=== PATIENT | female | born 2000 | race Caucasian/White ===

== ENCOUNTER 2022-02-09 19:14 | Emergency (ER) | payer OTHER ==
[~2022-02-09] VITALS: Ht 157.5 cm; Wt 68.0 kg
[~2022-02-09 19:14] MED LIST: CEPH250A PO; SILSUL1TC TOP
== END 2022-02-09 19:33 | disposition home or self-care (01) ==
LOC: ER 19:14
DX: R04.0 Epistaxis (principal); Z91.048 Other nonmedicinal substance allergy status
CPT/HCPCS: 99283

== ENCOUNTER → 2023-07-23 | Outpatient (CLI) | payer OTHER | LOC: LAB SHORT 18:30 → LAB 18:30 | DX: L03.316 Cellulitis of umbilicus (principal) | CPT/HCPCS: 87070; 87205 ==

== ENCOUNTER 2024-10-06 09:03 | Day surgery (SDC) | payer OTHER ==
[2024-10-06] VITALS (11 sets, daily range): BP systolic 112–129; BP diastolic 70–93
[~2024-10-06] VITALS: Ht 154.9 cm; Wt 89.4 kg
[~2024-10-06 09:03] MED LIST changes: +ALBU90OI; +AMLO5 PO; +BUPR150ER PO; +CefOXitin Sodium 2,000 MG in NS 50 ML IV SCH; +Co Q-1010 MG; +DULO60 PO; +ESTROVEN; +FAMO20 PO; +FERSU300 PO; +GABA100 PO; +GABA300 PO; +GLUCOSAMINE CHONDROI; +IBUP800 PO; +Indocyanine Green 25 MG Vial IV SCH; +KRILL OIL500 MG PO; +LORA10ER PO; +Lactated Ringer's 1,000 ML IV SCH; +Lisinopril-Hct1 EAC4 PO; +MERIBIN5 MG PO; +NITR.4SL SL; +OXYC5 PO; +TUMERIC; +[UNRECOGNIZED DRUG - CODE] PO; +[UNRECOGNIZED DRUG - OTHER]
[2024-10-06] MEDS ORDERED: Bupivacaine 0.5% HCl 5 MG/ML 30MLVIAL ONE (09:44)
[2024-10-06] MEDS ORDERED: propofoL 20 ML IV ONE (09:45)
[2024-10-06] MEDS ORDERED: Midazolam HCl 1MG / ML 2ML Vial ONE (09:45)
[2024-10-06] MEDS ORDERED: FentaNYL Citrate 50 MCG/ML 2 ML Injection ONE (09:45)
--- NOTE | 2024-10-06 09:45 | NUR ---
History, Chart, Medications and Allergies reviewed before start of procedure. Pre-Op teaching done. Pt verbalizes understanding. Patient confirms NPO status and agrees with scheduled surgery. PT BELONGINGS PLACED UNDER GURNEY. PT GAVE PURSE TO MOM AT BS.
[2024-10-06] MEDS ORDERED: Rocuronium Bromide 10 MG/ML 5ML Injection IV ONE (09:47)
[2024-10-06] MEDS ORDERED: Ketorolac Tromethamine 30mg Vial ONE (10:11)
[2024-10-06] MEDS ORDERED: Sugammadex Sodium 200 MG/2ML SDV (100 MG/ML) ONE (10:49)
[2024-10-06] MEDS ORDERED: Ondansetron HCl 2 MG / ML 2ML Vial ONE (10:49)
[2024-10-06] MEDS ORDERED: Dexamethasone Sod Phos 10 MG/ML 1ML VIAL ONE (10:49)
[2024-10-06] MEDS ORDERED: OxyCODONE 5 mg/Acetamin 325 mg TABLET PO PRN (11:05)
[2024-10-06] MEDS ORDERED: HYDROmorphone HCl/Pf 1MG SYR ONE (11:21)
--- NOTE | 2024-10-06 11:42 | NUR ---
PT TO DAY SURGERY FROM PACU WITH ROBOTIC LAPAROSCOPIC CHOLECYSTECTOMY; BEDSIDE REPORT RECEIVED. PT IS AWAKE, ALERT AND ORIENTED; ABLE TO MOVE SELF IN BED. VSS. PT HAS 4 ABD INCISIONS THAT ARE CLOSED WITH DERMABOND AND ARE C/D/I. PT MOM AT BEDSIDE. PT HAS NO COMPLAINTS. REQUESTING PO FLUIDS.
--- NOTE | 2024-10-06 11:56 | NUR ---
PT TOLERATING PO FLUIDS WELL. INCISIONS REMAIN C/D/I
--- NOTE | 2024-10-06 12:06 | NUR ---
PT TOLERATING CRACKERS
--- NOTE | 2024-10-06 12:16 | NUR ---
Discharge instructions reviewed with patient. Patient verbalizes understanding. Copy given to patient to take home. Patient States Post-Procedure ride home has been arranged. Pt declines hospital ice pack.
--- NOTE | 2024-10-06 12:26 | NUR ---
Patient up to Ambulate independently. Gait steady. Discharged via wheelchair to private car for ride home.
== END 2024-10-06 12:27 | disposition home or self-care (01) ==
LOC: ORSCMMR 09:03 → ORD 10:30 → ORSCMMR 12:27
PROVIDERS: Surgery
PROC: 0FT44ZZ Resection of Gallbladder, Percutaneous Endoscopic Approach (ICD-10-PCS; principal; 2024-10-06 10:30)
DX: K80.20 Calculus of gallbladder without cholecystitis without obstruction (principal); F41.9 Anxiety disorder, unspecified; K76.0 Fatty (change of) liver, not elsewhere classified; E66.9 Obesity, unspecified; Z68.37 Body mass index [BMI] 37.0-37.9, adult
CPT/HCPCS: 88304; A9270; J0694; J1100; J1171; J1885; J2250; J2405; J2704; J3010; J7120

== ENCOUNTER 2025-08-17 16:14 | Emergency (ER) | payer OTHER ==
[~2025-08-17] VITALS: Ht 162.6 cm; Wt 97.5 kg
[~2025-08-17 16:14] MED LIST changes: -PROM25 PO
[2025-08-17 16:31] VITALS: BP 145/97
[2025-08-17] MEDS ORDERED: Ondansetron 4 MG SoluTab SL ONE (16:40)
[2025-08-17] MEDS ORDERED: HYDROmorphone HCl/Pf 1MG SYR IV ONE (19:10)
[2025-08-17] MEDS ORDERED: Ondansetron HCl 2 MG / ML 2ML Vial IV ONE (19:10)
[2025-08-17] MEDS ORDERED: OxyCODONE 5 mg/Acetamin 325 mg TABLET PO ONE (19:25)
[2025-08-17] MEDS ORDERED: RX Prepack 6 Tabs Oxycodone 5mg UD ONE (19:25)
[2025-08-17] MEDS ORDERED: PROM25 PO (19:27)
== END 2025-08-17 19:42 | disposition home or self-care (01) ==
LOC: ER 16:14
DX: K52.9 Noninfective gastroenteritis and colitis, unspecified (principal)
CPT/HCPCS: 99284-25; A9270; J7120

== ENCOUNTER → 2025-08-17 | Outpatient (CLI) | payer OTHER ==
[~2025-08-17] MED LIST changes: -CefOXitin Sodium 2,000 MG in NS 50 ML IV SCH; -Indocyanine Green 25 MG Vial IV SCH; -Lactated Ringer's 1,000 ML IV SCH; +PROM25 PO
[2025-08-17 09:13] LABS: BASOPHILS ABSOLUTE AUTO 0.03 K/mm3 (0.00-0.23); BASOPHILS PERCENT AUTO 0 % (0-2); EOSINOPHILS ABSOLUTE AUTO 0.02 K/mm3 (0.00-0.68); EOSINOPHILS PERCENT AUTO 0 % (0-6); Hematocrit 45.6 % (33.0-51.0); Hemoglobin 15.2 g/dL (11.5-16.0); IMMATURE GRAN ABSOLUTE AUTO 0.02 K/mm3 (0.00-0.10); IMMATURE GRAN PERCENT AUTO 0 % (0-1); LYMPHOCYTES ABSOLUTE AUTO 1.47 K/mm3 (0.84-5.20); LYMPHOCYTES PERCENT AUTO 19 % (21-46); MONOCYTES ABSOLUTE AUTO 0.45 K/mm3 (0.16-1.47); MONOCYTES PERCENT AUTO 6 % (4-13); Mean Corpuscular HGB Conc 33.3 g/dL (31.5-36.5); Mean Corpuscular Volume 87 fL (80-100); NEUTROPHILS ABSOLUTE AUTO 5.74 K/mm3 (1.96-9.15); NEUTROPHILS PERCENT AUTO 74 % (41-73); NRBC ABSOLUTE 0.00 K/mm3 (0.00-0.02); NRBC Auto 0.0 /100 WBC (0.0-0.2); Platelet Count 301 K/mm3 (150-400); RDW Coefficient Variation 11.9 % (11.7-14.2); RDW Standard Deviation 38.2 fL (35.1-46.3)
[2025-08-17 09:47] LABS: Alanine Aminotransfer (ALT/SGP 30.0 U/L (12-78); Albumin, Blood 4.2 g/dL (3.4-5.0); Albumin/Globulin Ratio 1.2 (0.8-1.8); Anion Gap 6.0 mmol/L (3-11); Aspartate Aminotrans (AST/SGOT 20.0 U/L (12-37); Bilirubin, Total 0.7 mg/dL (0.1-1.0); Blood Urea Nitrogen 12.0 mg/dL (8-24); CO2, Blood 27.0 mmol/L (21-32); Calcium, Blood 9.7 mg/dL (8.5-10.1); Chloride, Blood 107.0 mmol/L (98-108); Creatinine, Blood 0.61 mg/dL (0.40-1.00); Globulin, Blood 3.4 g/dL (2.2-4.0); Glucose, Blood 92.0 mg/dL (70-99); Potassium, Blood 3.9 mmol/L (3.5-5.5); Sodium, Blood 136.0 mmol/L (136-145); Total Protein, Blood 7.6 g/dL (6.4-8.2)
== END ==
LOC: LAB 08:00 → LAB SHORT 08:00
PROVIDERS: Nurse Practitioner Family
DX: R10.9 Unspecified abdominal pain (principal)
CPT/HCPCS: 80053; 83690; 85025